=== PATIENT | male | born 1950 | race Caucasian/White ===

== ENCOUNTER 2019-07-31 09:57 | Emergency (ER) | payer OTHER ==
[2019-07-31] MEDS: METHYLPREDNISOLONE 125 MG INJ IM (11:04)
[2019-07-31] MEDS: KETOROLAC 30 MG INJ IM (11:05)
== END 2019-07-31 11:26 | disposition home or self-care (01) ==
LOC: FTE 11:26
DX: M54.41 Lumbago with sciatica, right side (principal); I10 Essential (primary) hypertension
CPT/HCPCS: 96372; 99284-25